=== PATIENT | female | born 1985 | race Caucasian/White ===

== ENCOUNTER 2019-11-01 14:00 | Emergency (ER) | payer OTHER ==
[~2019-11-01] VITALS: Ht 175.3 cm; Wt 78.9 kg
--- NOTE | 2019-11-01 14:10 | NUR ---
, from home, c/o back pain 2 hrs [employer], denies trauma/injury. 10/10 pain scale. Patient a/ox4, breathing even and unlabored, no sob noted. Needs attended, kept comfortable.
[2019-11-01] MEDS ORDERED: predniSONE 20 MG TABLET ONE (14:22)
[2019-11-01] MEDS ORDERED: MORPHINE SULFATE INJ 4 MG/ML DISP.SYRIN ONE ×2 (14:22→16:37)
[2019-11-01] MEDS ORDERED: METHOCARBAMOL (500MG) 500 MG TABLET ONE (14:22)
[2019-11-01] MEDS ORDERED: MORPHINE SULFATE INJ 2 MG/ML DISP.SYRIN IM ONE ×2 (14:30→17:00)
[2019-11-01] MEDS ORDERED: predniSONE 20 MG TABLET PO ONE (14:30)
[2019-11-01] MEDS ORDERED: METHOCARBAMOL (500MG) 500 MG TABLET PO ONE (14:30)
--- NOTE | 2019-11-01 14:46 | NUR ---
urine sent to lab
[2019-11-01 15:01] LABS: APPEARANCE,URINE Clear (CLEAR); BILIRUBIN,URINE Negative (NEGATIVE); BLOOD, URINE Trace-intact Ery/uL (NEGATIVE); COLOR,URINE Yellow (YELLOW); KETONES,URINE Negative (NEGATIVE); LEUKOCYTE ESTERASE ,URINE Negative (NEGATIVE); NITRITE, URINE Negative (NEGATIVE); PROTEIN,URINE Negative (NEGATIVE); UGLUCOSE Negative (NEGATIVE); UROBILINOGEN,URINE 0.2 EU/dL (0.2)
[2019-11-01 15:04] LABS: BACTERIA,URINE Rare /HPF (None Seen); RBC,URINE 0-2 /HPF (0-2); SQUAMOUS EPITHELIAL CELL,UR Few /HPF (None Seen); WBC,URINE 0-2 /HPF (0-3)
[2019-11-01] MEDS ORDERED: MORPHINE SULFATE INJ 2 MG/ML DISP.SYRIN ONE (16:37)
--- NOTE | 2019-11-01 16:42 | NUR ---
patient a/ox4, breathing even and unlabored, no sob noted. Needs attended. Kept comfortable. Vitals stable.
--- NOTE | 2019-11-01 16:51 | NUR ---
Patient assisted to wheelchair, a/ox4, no distress noted. Patient discharged to home in stable condition. Written and verbal after care instructions given. Patient verbalizes understanding of instruction.
[2019-11-01 16:57] VITALS: BP 128/69
== END 2019-11-01 16:58 | disposition home or self-care (01) ==
LOC: ER 14:05
DX: M47.816 Spondylosis without myelopathy or radiculopathy, lumbar region (principal)
CPT/HCPCS: 72131; 81001; 84703; 96372 ×2; 99285; J2270 ×3; J7512; 81000-TC